=== PATIENT | female | born 1940 | race Caucasian/White ===

== ENCOUNTER 2025-08-06 21:46 | Inpatient (IN) | payer MEDICARE, OTHER ==
[~2025-08-06] VITALS: Ht 154.9 cm; Wt 68.0 kg
[2025-08-06] MEDS ORDERED: LORA-259 PO (21:58)
[2025-08-06] MEDS ORDERED: LOSA1TAB15 PO (21:58)
[2025-08-06] MEDS ORDERED: NORT25CA PO (21:58)
[2025-08-06] MEDS ORDERED: HYDR25TA4 PO (21:58)
[2025-08-06 22:20] LABS: PLATELET COUNT (AUTO) 313 K/uL (179-408); RED BLOOD CELL COUNT(AUTO) 3.98 MIL/uL (3.63-4.92); RED CELL DISTRIBUTION WIDTH 13.0 % (12.3-17.7); WHITE BLOOD COUNT (AUTO) 11.1 K/uL (3.8-11.8)
[2025-08-06 22:28] LABS: CREATININE 0.7 mg/dL (0.6-1.3); SODIUM SERUM 140 mmol/L (136-145); UREA NITROGEN, BLOOD 26 mg/dL (7-18)
[2025-08-06] MEDS: IV NORMAL SALINE 1000 ML BAG IV ONE (22:30)
[2025-08-06 22:34] LABS: ASPARTATE AMINOTRANSFERASE 7 U/L (15-37); ETHANOL < 3 MG/DL (0-10); TOTAL PROTEIN, SERUM 7.4 g/dL (6.4-8.2)
[2025-08-06] MEDS ORDERED: CEFTRIAXONE /D5W 50ML IVPB **ER PYXIS IV ONE (23:16)
[2025-08-07 03:01] LABS: *BILIRUBIN,URIN NEGATIVE (NEGATIVE); *BLOOD, URINE NEGATIVE (NEGATIVE); *CLARITY,URINE CLEAR (CLEAR); *COLOR,URINE YELLOW (YELLOW); *KETONES,URINE NEGATIVE (NEGATIVE); *PROTEIN,URINE NEGATIVE (NEGATIVE); *UROBILINOGEN,URINE 0.2 E.U./dl (NORMAL); LEUKOCYTE ESTERASE ,URINE NEGATIVE (NEGATIVE); NITRITE, URINE NEGATIVE (NEGATIVE); UGLUCOSE NEGATIVE (NEGATIVE)
[2025-08-07 03:16] LABS: *AMPHETAMINE, URINE NEGATIVE (NEGATIVE); *BARBITURATE, URINE NEGATIVE (NEGATIVE); *BENZODIAZEPINE, URINE NEGATIVE (NEGATIVE); *CANNABINOID, URINE NEGATIVE (NEGATIVE); *COCCAINE, URINE NEGATIVE (NEGATIVE); *OPIATE, URINE NEGATIVE (NEGATIVE); *PHENCYCLIDINE SCREEN,URINE NEGATIVE (NEGATIVE); FENTANYL, URINE NEGATIVE (NEGATIVE)
[2025-08-07 04:08] VITALS: BP 143/76
[2025-08-07] MEDS ORDERED: QUETIAPINE FUMARATE 25 MG TABLET PO PRN (04:30)
[2025-08-07] MEDS ORDERED: ZOLPIDEM 5 MG TABLET PO PRN (04:30)
[2025-08-07] MEDS ORDERED: MAG HYDROX/AL HYDROX/SIMETH 30 ML LIQUID UDC PO PRN (04:30)
[2025-08-07] MEDS ORDERED: MAGNESIUM HYDROXIDE 30 ML LIQUID UDC PO PRN (04:30)
[2025-08-07] MEDS ORDERED: LOSA1TAB39 PO (04:57)
[2025-08-07] MEDS ORDERED: FENO48TA6 PO (04:57)
[2025-08-07] MEDS ORDERED: QUET25TA PO (04:57)
[2025-08-07] MEDS ORDERED: CEPH500T PO (04:57)
[2025-08-07] MEDS ORDERED: MUPI15CR TP (04:57)
[2025-08-07] MEDS ORDERED: ESTR0.5T PO (04:57)
[2025-08-07] MEDS ORDERED: SIMV-49 PO (04:57)
[2025-08-07] MEDS: BLOOD SUGAR DIAGNOSTIC 1 EACH STRIP VI ONE (05:04)
[2025-08-07 05:53] VITALS: BP 166/62; TEMP 98.5; O2SAT 97
[2025-08-07 08:20] VITALS: BP 164/57; TEMP 98.5; O2SAT 97
[2025-08-07 08:48] LABS: GLUCOSE FASTING 112.0 mg/dL (70-115)
[2025-08-07] MEDS: QUETIAPINE FUMARATE 25 MG TABLET PO PRN (14:50)
[2025-08-07] MEDS: ACETAMINOPHEN 325 MG TABLET PO PRN (14:51)
[2025-08-07 16:16] VITALS: BP 137/68; TEMP 98.5; O2SAT 97
[2025-08-07 19:51] VITALS: BP 123/66; TEMP 98.1; O2SAT 98
[2025-08-07] MEDS: MIRTAZAPINE 15 MG TABLET PO SCH (20:35)
[2025-08-08] MEDS: ZOLPIDEM 5 MG TABLET PO PRN (01:02)
[2025-08-08] MEDS: LOSARTAN POTASSIUM 50 MG TABLET PO SCH (08:51)
[2025-08-08] MEDS: HYDROCHLOROTHIAZIDE 25 MG TABLET PO SCH (08:51)
[2025-08-08] MEDS: SIMVASTATIN 40 MG TABLET PO SCH (08:53)
[2025-08-08] MEDS: ESTRADIOL 1 MG TABLET PO SCH (08:53)
[2025-08-08] MEDS ORDERED: HYDROCHLOROTHIAZIDE 25 MG TABLET PO SCH ×2 (09:00)
[2025-08-08 09:05] VITALS: BP 166/63; TEMP 98.6; O2SAT 95
[2025-08-08] MEDS: LAMOTRIGINE 25 MG TABLET PO SCH (11:25)
[2025-08-08 16:15] VITALS: BP 155/74; TEMP 97.3; O2SAT 97
[2025-08-08 19:52] VITALS: BP 158/65; TEMP 97.6; O2SAT 98
[2025-08-08] MEDS: QUETIAPINE FUMARATE 25 MG TABLET PO SCH (20:30)
[2025-08-09 08:17] VITALS: BP 190/73; TEMP 98; O2SAT 96
[2025-08-09 15:21] VITALS: BP 130/75; TEMP 98; O2SAT 96
[2025-08-09 19:36] VITALS: BP 171/73; TEMP 98.9; O2SAT 95
[2025-08-09 22:00] VITALS: BP 152/60
[2025-08-10] MEDS: REMEDY ESSENTIAL ZINC PASTE 113 GM TOP SCH (08:10)
[2025-08-10 08:23] VITALS: BP 170/67; TEMP 98; O2SAT 96
[2025-08-10] MEDS: ENSURE ENLIVE (VAN) 240 ML LIQUID PO SCH (12:32)
[2025-08-10] MEDS: CLOTRIMAZOLE/BETAMET DIPROP CREAM 15 GM TUBE TOP SCH (12:33)
[2025-08-10 15:04] VITALS: BP 162/58; TEMP 98; O2SAT 96
[2025-08-10 19:57] VITALS: BP 176/86; TEMP 98; O2SAT 95
[2025-08-10] MEDS: MIRTAZAPINE 15 MG TABLET PO SCH (22:12)
[2025-08-11 07:43] VITALS: BP 159/52; TEMP 98; O2SAT 98
[2025-08-11] MEDS: LAMOTRIGINE 25 MG TABLET PO SCH (08:54)
[2025-08-11 15:20] VITALS: BP 156/84; TEMP 98; O2SAT 98
[2025-08-11 20:00] VITALS: BP 188/77; TEMP 99.7; O2SAT 95
[2025-08-11 21:00] VITALS: TEMP 98
[2025-08-11 22:30] VITALS: BP 152/60
[2025-08-12 07:31] LABS: PLATELET COUNT (AUTO) 335 K/uL (179-408); RED BLOOD CELL COUNT(AUTO) 4.61 MIL/uL (3.63-4.92); RED CELL DISTRIBUTION WIDTH 13.0 % (12.3-17.7); WHITE BLOOD COUNT (AUTO) 13.5 K/uL (3.8-11.8)
[2025-08-12 07:43] LABS: ASPARTATE AMINOTRANSFERASE 19 U/L (15-37); CREATININE 1.2 mg/dL (0.6-1.3); SODIUM SERUM 147 mmol/L (136-145); TOTAL PROTEIN, SERUM 7.7 g/dL (6.4-8.2); UREA NITROGEN, BLOOD 72 mg/dL (7-18)
[2025-08-12 08:17] VITALS: BP 158/65; TEMP 98; O2SAT 98
[2025-08-12 16:27] VITALS: BP 158/62; TEMP 98; O2SAT 98
[2025-08-12 20:12] VITALS: BP 152/46; TEMP 98.7; O2SAT 86
[2025-08-12] MEDS: MEGESTROL ACETATE 400 MG/10 ML LIQUID UDC PO SCH (20:39)
== END 2025-08-13 01:55 | disposition short-term general hospital (02) | DRG 885 ==
LOC: ER 21:46 → GPS 08-07 04:06
PROVIDERS: ADMIT Psychiatry & Neurology Psychiatry; ATTEND Internal Medicine
DX: F33.3 Major depressive disorder, recurrent, severe with psychotic symptoms (principal); N18.9 Chronic kidney disease, unspecified; F03.918 Unspecified dementia, unspecified severity, with other behavioral disturbance; I12.9 Hypertensive chronic kidney disease with stage 1 through stage 4 chronic kidney disease, or unspecified chronic kidney disease; F03.93 Unspecified dementia, unspecified severity, with mood disturbance; R45.851 Suicidal ideations; E78.5 Hyperlipidemia, unspecified; S11.81XD Laceration without foreign body of other specified part of neck, subsequent encounter; X78.1XXA Intentional self-harm by knife, initial encounter; Y92.89 Other specified places as the place of occurrence of the external cause; Z91.51 Personal history of suicidal behavior
CPT/HCPCS: 36415; 85025; 93005; A4606; A4663; G0480; J0696; J7040; J8999

== ENCOUNTER 2025-08-12 22:20 | Emergency (ER) | payer MEDICARE, OTHER ==
[~2025-08-12] VITALS: Ht 154.9 cm; Wt 68.0 kg
[~2025-08-12 22:20] MED LIST: CEPH500T PO; ESTR0.5T PO; FENO48TA6 PO; LOSA1TAB39 PO; MUPI15CR TP; SIMV-49 PO
[2025-08-12] MEDS ORDERED: NOREPINEPHRINE 8MG/NS 250ML 250 ML IV ONE (22:26)
[2025-08-12] MEDS ORDERED: PROPOFOL 100 ML ONE (22:27)
[2025-08-12 23:37] LABS: CREATININE 2.5 mg/dL (0.6-1.3); SODIUM SERUM 149 mmol/L (136-145)
[2025-08-12] MEDS: NOREPINEPHRINE BITARTRATE 8 MG in IV NORMAL SALINE 250 ML IV ONE (23:38)
[2025-08-12 23:39] LABS: UREA NITROGEN, BLOOD 91 mg/dL (7-18)
[2025-08-12 23:40] LABS: PLATELET COUNT (AUTO) 315 K/uL (179-408); RED BLOOD CELL COUNT(AUTO) 4.61 MIL/uL (3.63-4.92); RED CELL DISTRIBUTION WIDTH 13.5 % (12.3-17.7); WHITE BLOOD COUNT (AUTO) 25.0 K/uL (3.8-11.8)
[2025-08-12 23:48] LABS: ASPARTATE AMINOTRANSFERASE 52 U/L (15-37); TOTAL PROTEIN, SERUM 7.7 g/dL (6.4-8.2)
[2025-08-12 23:53] VITALS: BP 115/56
[2025-08-12 23:56] LABS: LACTIC ACID 4.2 mmol/L (0.4-2.0)
[2025-08-13] VITALS: BP 127/48; O2SAT 100
[2025-08-13] MEDS: PROPOFOL 100 ML IV PRN (00:12)
== END 2025-08-13 00:14 | disposition short-term general hospital (02) ==
LOC: ER 22:23
DX: I21.09 ST elevation (STEMI) myocardial infarction involving other coronary artery of anterior wall (principal); R57.0 Cardiogenic shock; J81.0 Acute pulmonary edema; I12.9 Hypertensive chronic kidney disease with stage 1 through stage 4 chronic kidney disease, or unspecified chronic kidney disease; N18.9 Chronic kidney disease, unspecified; F32.A Depression, unspecified; F03.94 Unspecified dementia, unspecified severity, with anxiety; F03.93 Unspecified dementia, unspecified severity, with mood disturbance; E78.5 Hyperlipidemia, unspecified; Z79.818 Long term (current) use of other agents affecting estrogen receptors and estrogen levels; Z79.899 Other long term (current) drug therapy; Z20.822 Contact with and (suspected) exposure to COVID-19; Z60.2 Problems related to living alone
CPT/HCPCS: 36415; 36556; 71045; 83605; 84484; 85025; 85730; 87040; A4606; A4663; J3490